=== PATIENT | male | born 1950 | race Caucasian/White ===

== ENCOUNTER 2021-07-22 19:53 | Inpatient (IN) | payer MEDICARE, OTHER ==
[~2021-07-22] VITALS: Ht 177.8 cm; Wt 64.4 kg
--- NOTE | 2021-07-22 21:20 | NUR ---
DR. GUZMAN AT BEDSIDE, MSE IN PROGRESS.
[2021-07-22] MEDS ORDERED: LOSA100T3 PO (21:21)
[2021-07-22] MEDS ORDERED: CALC500T52 PO (21:21)
[2021-07-22] MEDS ORDERED: NIFE90TA2 PO (21:21)
[2021-07-22] MEDS ORDERED: ISOS10TA2 PO (21:21)
[2021-07-22] MEDS ORDERED: HALO2TAB PO (21:21)
[2021-07-22] MEDS ORDERED: BISA10SU61 RC (21:21)
[2021-07-22] MEDS ORDERED: ATOR20TA PO (21:21)
[2021-07-22] MEDS ORDERED: NA P133E RC (21:21)
[2021-07-22] MEDS ORDERED: HYDR-4077 PO (21:21)
[2021-07-22] MEDS ORDERED: MAGN400T26 PO (21:21)
[2021-07-22] MEDS ORDERED: CINA30TA2 PO (21:21)
[2021-07-22] MEDS ORDERED: CLOP75TA15 PO (21:21)
[2021-07-22] MEDS ORDERED: OLAN5TAB6 PO (21:21)
[2021-07-22] MEDS ORDERED: TAMS-3 PO (21:21)
[2021-07-22] MEDS ORDERED: ASPI81TA31 PO (21:21)
[2021-07-22] MEDS ORDERED: BENZ1TAB7 PO (21:21)
[2021-07-22] MEDS ORDERED: LORA10TA7 PO (21:21)
[2021-07-22] MEDS ORDERED: DIVA250T PO (21:21)
[2021-07-22] MEDS ORDERED: HALO5AMP2 IJ (21:21)
[2021-07-22] MEDS ORDERED: MAGN400O6 PO (21:21)
[2021-07-22] MEDS ORDERED: DOCU-141 PO (21:21)
--- NOTE | 2021-07-22 21:37 | NUR ---
LAB AT BEDSIDE.
[2021-07-22 21:57] LABS: CARBON DIOXIDE 28 mmol/L (21-32); CHLORIDE 109 mmol/L (98-107); CREATININE 2.2 mg/dL (0.6-1.3); GLUCOSE 99 mg/dL (74-106); POTASSIUM 5.1 mmol/L (3.5-5.1); UREA NITROGEN, BLOOD 49 mg/dL (7-18)
[2021-07-22 22:03] LABS: ALANINE AMINOTRANSFERASE 15 U/L (16-63); ALKALINE PHOSPHATASE 54 U/L (50-136); ASPARTATE AMINOTRANSFERASE 11 U/L (15-37); BILIRUBIN,DIRECT < 0.1 mg/dL (0.0-0.2); BILIRUBIN,TOTAL 0.2 mg/dL (0.2-1.0); CREATINE KINASE, TOTAL 119 U/L (39-308); TOTAL PROTEIN, SERUM 6.8 g/dL (6.4-8.2)
[2021-07-22 22:05] LABS: ACETAMINOPHEN < 2.0 ug/mL (10-30)
[2021-07-22 22:06] LABS: ETHANOL < 3 MG/DL (0-0)
[2021-07-22 22:11] LABS: THYROID STIMULATING HORMONE 1.276 mIU/mL (0.358-3.740)
[2021-07-22 22:18] LABS: HEMATOCRIT 23.1 % (36.7-47.1); MEAN CORPUSCULAR HEMOGLOBIN 29.4 uug (23.8-33.4); PLATELET COUNT (AUTO) 165 K/uL (152-348)
--- NOTE | 2021-07-22 23:01 | NUR ---
CALLED MARLEN FROM CRISIS TEAM, NO ANSWER LEFT VOICEMAIL.
--- NOTE | 2021-07-22 23:07 | NUR ---
PROVIDED PT WITH MEAL TRAY, WELL TOLERATED.
--- NOTE | 2021-07-22 23:15 | NUR ---
CALLED MARLEN AGAIN, WILL BE ON HER WAY.
--- NOTE | 2021-07-23 | NUR ---
MARLEN AT BEDSIDE TO NUBIA HOANG
--- NOTE | 2021-07-23 00:37 | NUR ---
PT IN BED ASLEEP, BREATHING EVEN AND UNLABORED.
--- NOTE | 2021-07-23 01:30 | NUR ---
GAVE REPORT TO DEISY.
[2021-07-23] MEDS ORDERED: BISACODYL 10 MG SUPP.RECT RC PRN (01:45)
[2021-07-23] MEDS ORDERED: MAGNESIUM HYDROXIDE 30 ML LIQUID UDC PO PRN ×2 (01:45→02:00)
[2021-07-23] MEDS ORDERED: FLEET ENEMA 133 ML BOTTLE RC PRN ×2 (01:45→05:41)
[2021-07-23] MEDS ORDERED: ACETAMINOPHEN 325 MG TABLET PO PRN (02:00)
[2021-07-23] MEDS ORDERED: LORAZEPAM 0.5 MG TABLET PO PRN (02:00)
[2021-07-23] MEDS ORDERED: MAG HYDROX/AL HYDROX/SIMETH 30 ML LIQUID UDC PO PRN (02:00)
--- NOTE | 2021-07-23 02:32 | NUR ---
Pt. admitted to MHU , under care of Dr. AXEL ELLISON DX: [id number], 5150 HOLD DTO, DTS Belongs List completed
[2021-07-23 02:46] VITALS: BP 115/57
--- NOTE | 2021-07-23 03:39 | NUR ---
PATIENT RECEIVED FROM ER VIA [facility] AT 0230. PATIENT WAS UNKEMPT,ALERT/ORIENTED X1, FLAT AFFECT, CONFUSED, GUARDED, ANXIOUS, GARBLED SPEECH, DISORGANIZED, DISORIENTED, AND REQUIRED CONSTANT REDIRECTION. PATIENT STATES SMOKING 12 CIGARETTES A DAY, EDUCATED PATIENT THAT A NICOTINE PATCH WILL BE ORDERED WHILE ADMITTED TO MHU, PATIENT REQUIRED REDIRECTION HE STATED " I WANT TO SMOKE." PATIENT HAS A HISTORY OF DYSPHAGIA AND APHASIA. PATIENT ORIENTED TO UNIT AND ROOM, REQUIRES CONSTANT REDIRECTION AND ORIENTATION. SKIN INTACT, PATIENT CHANGED INTO HOSPITAL GOWN AND HOSPITAL PANTS. PATIENT RECEIVED PATIENT RIGHTS HANDBOOK AND ADVISEMENT AT BEDSIDE. SAFETY MEASURES RENDERED. BED IN LOWEST POSITION, BED LOCKED, AND BED ALARM ON WHILE IN BED. PATIENT DENIES PAIN, NO FACIAL GRIMACING NOTED.
[2021-07-23] MEDS: NICOTINE 14 MG/24HR PATCH TD SCH ×2 (03:55→08:53)
[2021-07-23 08:30] VITALS: BP 141/50
[2021-07-23 08:39] LABS: ALANINE AMINOTRANSFERASE 20 U/L (16-63); ALKALINE PHOSPHATASE 49 U/L (50-136); ASPARTATE AMINOTRANSFERASE 11 U/L (15-37); BILIRUBIN,TOTAL 0.2 mg/dL (0.2-1.0); CARBON DIOXIDE 26 mmol/L (21-32); CHLORIDE 114 mmol/L (98-107); CREATININE 1.9 mg/dL (0.6-1.3); GLUCOSE 77 mg/dL (74-106); TOTAL PROTEIN, SERUM 6.2 g/dL (6.4-8.2); UREA NITROGEN, BLOOD 47 mg/dL (7-18)
[2021-07-23] MEDS: CLOPIDOGREL 75 MG TABLET PO SCH (08:50)
[2021-07-23] MEDS: ASPIRIN 81 MG TAB.CHEW PO SCH (08:50)
[2021-07-23] MEDS: NIFEdipine XL 90 MG TABSR PO SCH (08:50)
[2021-07-23] MEDS: CALCIUM CARBONATE 500 MG TABLET PO SCH ×2 (08:51→16:44)
[2021-07-23] MEDS: MAGNESIUM OXIDE 400 MG TABLET PO SCH ×2 (08:51→16:44)
[2021-07-23] MEDS: LORATADINE 10 MG TABLET PO SCH (08:51)
[2021-07-23] MEDS: CINACALCET HCL 30 MG TABLET PO SCH (08:51)
[2021-07-23] MEDS: ISOSORBIDE DINITRATE 10 MG TABLET PO SCH ×3 (08:51→16:52)
[2021-07-23] MEDS: DOCUSATE SODIUM 100 MG CAPSULE PO SCH ×2 (08:51→16:44)
[2021-07-23] MEDS: LOSARTAN POTASSIUM 50 MG TABLET PO SCH (08:54)
[2021-07-23 09:00] LABS: CHOLESTEROL 142 mg/dL (<200); HDL CHOLESTEROL 36 mg/dL (40-60); TRIGLYCERIDES 61 MG/DL (30-150)
[2021-07-23] MEDS: OLANZAPINE 5 MG TABLET PO SCH ×2 (12:42→20:59)
[2021-07-23] MEDS: DIVALPROEX 250 MG TABLET.DR PO SCH ×2 (12:44→16:51)
--- NOTE | 2021-07-23 15:51 | NUR ---
Received patient AAO x 1 to him self only able to ambulating with unsteady gait, patient able to make needs known with Garble speech .complaint with AM medication ,denies any SI/HI ,shower given with assisted .will continue close monitoring.
[2021-07-23 15:52] VITALS: BP 128/55
[2021-07-23] MEDS ORDERED: DIVA250T PO (16:35)
[2021-07-23 16:53] LABS: IRON, SERUM 25 ug/dL (50-175)
[2021-07-23 19:56] VITALS: BP 136/54
[2021-07-23] MEDS: ATORVASTATIN 20 MG TABLET PO SCH (20:59)
[2021-07-23] MEDS: TAMSULOSIN HCL 0.4 MG CAP.SR.24H PO SCH (20:59)
--- NOTE | 2021-07-24 05:13 | NUR ---
Received patient in his room sleeping, ambulate in the hallways, expressing wanting to go home, patient calm cooperative with care and medication, slept well, cont to monitor.
[2021-07-24 07:30] VITALS: BP 118/53
[2021-07-24 07:55] LABS: CARBON DIOXIDE 25 mmol/L (21-32); CHLORIDE 112 mmol/L (98-107); CREATININE 1.9 mg/dL (0.6-1.3); GLUCOSE 88 mg/dL (74-106); POTASSIUM 5.6 mmol/L (3.5-5.1); UREA NITROGEN, BLOOD 46 mg/dL (7-18)
[2021-07-24] MEDS: CINACALCET HCL 30 MG TABLET PO SCH (09:16)
[2021-07-24] MEDS: DOCUSATE SODIUM 100 MG CAPSULE PO SCH ×2 (09:16→17:36)
[2021-07-24] MEDS: NICOTINE 14 MG/24HR PATCH TD SCH (09:16)
[2021-07-24] MEDS: LOSARTAN POTASSIUM 50 MG TABLET PO SCH (09:17)
[2021-07-24] MEDS: NIFEdipine XL 90 MG TABSR PO SCH (09:18)
[2021-07-24] MEDS: ISOSORBIDE DINITRATE 10 MG TABLET PO SCH ×3 (09:19→17:37)
[2021-07-24] MEDS: MAGNESIUM OXIDE 400 MG TABLET PO SCH ×2 (09:19→17:39)
[2021-07-24] MEDS: OLANZAPINE 5 MG TABLET PO SCH ×2 (09:19→20:44)
[2021-07-24] MEDS: ASPIRIN 81 MG TAB.CHEW PO SCH (09:19)
[2021-07-24] MEDS: CLOPIDOGREL 75 MG TABLET PO SCH (09:20)
[2021-07-24] MEDS: DIVALPROEX 250 MG TABLET.DR PO SCH ×3 (09:20→17:36)
[2021-07-24] MEDS: LORATADINE 10 MG TABLET PO SCH (09:21)
--- NOTE | 2021-07-24 15:00 | NUR ---
A/O X 2 to person, place. Pt. is disorganized, confused, disheveled, compliant with medications. Reality orientation provided. Denies SI/HI AH/VH. Denies pain. Denies SOB. Fall and safety precautions implemented.
[2021-07-24 16:00] VITALS: BP 116/66
[2021-07-24 20:00] VITALS: BP 108/43
[2021-07-24] MEDS: ATORVASTATIN 20 MG TABLET PO SCH (20:44)
[2021-07-24] MEDS: TAMSULOSIN HCL 0.4 MG CAP.SR.24H PO SCH (20:44)
--- NOTE | 2021-07-25 06:14 | NUR ---
Patient slept 8.00 last night. He was up frequently to use the bathroom. 2 times incontinent in addition. Total linen change done. The patient has multiple requests for food, but refuses to take a shower. Gait is unsteady, bed alarm on. Safety Stratiges are in place. Continuing to monitor for behavior escalation. Medication compliant at this time.
[2021-07-25 07:30] VITALS: BP 137/53
[2021-07-25] MEDS: LORATADINE 10 MG TABLET PO SCH (08:54)
[2021-07-25] MEDS: DOCUSATE SODIUM 100 MG CAPSULE PO SCH ×2 (08:54→16:32)
[2021-07-25] MEDS: MAGNESIUM OXIDE 400 MG TABLET PO SCH ×2 (08:55→16:32)
[2021-07-25] MEDS: DIVALPROEX 250 MG TABLET.DR PO SCH ×3 (08:55→16:37)
[2021-07-25] MEDS: ISOSORBIDE DINITRATE 10 MG TABLET PO SCH ×3 (08:55→16:34)
[2021-07-25] MEDS: CINACALCET HCL 30 MG TABLET PO SCH (08:56)
[2021-07-25] MEDS: CLOPIDOGREL 75 MG TABLET PO SCH (08:56)
[2021-07-25] MEDS: NIFEdipine XL 90 MG TABSR PO SCH (08:56)
[2021-07-25] MEDS: OLANZAPINE 5 MG TABLET PO SCH ×2 (08:57→21:10)
[2021-07-25] MEDS: NICOTINE 14 MG/24HR PATCH TD SCH (08:57)
[2021-07-25] MEDS: ASPIRIN 81 MG TAB.CHEW PO SCH (08:58)
[2021-07-25 13:23] LABS: MEAN CORPUSCULAR HEMOGLOBIN 30.5 uug (23.8-33.4); MEAN CORPUSCULAR VOLUME 81.1 fL (73.0-96.2); PLATELET COUNT (AUTO) 172 K/uL (152-348)
[2021-07-25 13:33] LABS: ALANINE AMINOTRANSFERASE 14 U/L (16-63); ALKALINE PHOSPHATASE 61 U/L (50-136); ASPARTATE AMINOTRANSFERASE 8 U/L (15-37); BILIRUBIN,TOTAL 0.3 mg/dL (0.2-1.0); CARBON DIOXIDE 26 mmol/L (21-32); CHLORIDE 108 mmol/L (98-107); CREATINE KINASE, TOTAL 28 U/L (39-308); CREATININE 1.7 mg/dL (0.6-1.3); GLUCOSE 115 mg/dL (74-106); MAGNESIUM 1.9 mg/dL (1.8-2.4); PHOSPHOROUS 2.6 mg/dL (2.5-4.9); POTASSIUM 5.5 mmol/L (3.5-5.1); TOTAL PROTEIN, SERUM 7.4 g/dL (6.4-8.2); UREA NITROGEN, BLOOD 38 mg/dL (7-18)
--- NOTE | 2021-07-25 15:12 | NUR ---
CHERELLE Initial Discharge Note: Pt is a 71 year old male admitted to [facility] on a 5150 hold for a danger to himself and gravely disabled adult. Pt was brought from [facility] ER requesting a psychiatric evaluation. Per pt's sister/DPAna ARREDONDO ([phone]), pt currently resides at [address] [phone] and would like for the pt to return there. Per admissions team at [facility], pt is welcome back upon discharge. CHERELLE will continue to work with pt, family and MD to ensure a safe and proper discharge plan.
--- NOTE | 2021-07-25 15:59 | NUR ---
Collected urine sample as ordered, sent to the lab, awaiting result.
[2021-07-25 16:00] VITALS: BP 101/62
[2021-07-25 16:58] LABS: *BILIRUBIN,URIN NEGATIVE (NEGATIVE); *BLOOD, URINE NEGATIVE (NEGATIVE); *CLARITY,URINE CLEAR (CLEAR); *COLOR,URINE YELLOW (YELLOW); *KETONES,URINE NEGATIVE (NEGATIVE); *UROBILINOGEN,URINE 0.2 E.U./dl (NORMAL); LEUKOCYTE ESTERASE ,URINE NEGATIVE (NEGATIVE); NITRITE, URINE NEGATIVE (NEGATIVE); UGLUCOSE NEGATIVE (NEGATIVE)
[2021-07-25 17:03] LABS: *CREATININE,URINE 102.1 mg/dL (30-125); *URINE TOTAL PROTEIN RANDOM 12.4 mg/dL (<150/24HR)
--- NOTE | 2021-07-25 18:35 | NUR ---
Patient is noted with some confusion, aspiration precaution maintained. Able to verbalized needs but words were unclear. Needs to be redirected. encouraged to verbalized concerns. Contract for safety with the patient. Safety measure maintained. Frequent checks done. Denies SI/HI. will endorse to the next shift for continuity of care.
[2021-07-25 20:00] VITALS: BP 107/41
[2021-07-25] MEDS: TAMSULOSIN HCL 0.4 MG CAP.SR.24H PO SCH (21:09)
[2021-07-25] MEDS: ATORVASTATIN 20 MG TABLET PO SCH (21:10)
[2021-07-26 07:30] VITALS: BP 134/48
[2021-07-26] MEDS: MAGNESIUM OXIDE 400 MG TABLET PO SCH ×2 (07:56→17:07)
[2021-07-26] MEDS: DOCUSATE SODIUM 100 MG CAPSULE PO SCH ×2 (07:56→17:07)
[2021-07-26] MEDS: CLOPIDOGREL 75 MG TABLET PO SCH (07:57)
[2021-07-26] MEDS: LORATADINE 10 MG TABLET PO SCH (07:59)
[2021-07-26] MEDS: DIVALPROEX 250 MG TABLET.DR PO SCH ×3 (07:59→17:07)
[2021-07-26] MEDS: NICOTINE 14 MG/24HR PATCH TD SCH (08:00)
[2021-07-26] MEDS: OLANZAPINE 5 MG TABLET PO SCH ×2 (08:00→20:03)
[2021-07-26] MEDS: ASPIRIN 81 MG TAB.CHEW PO SCH (08:01)
[2021-07-26] MEDS: CINACALCET HCL 30 MG TABLET PO SCH (08:01)
[2021-07-26 08:06] LABS: ALANINE AMINOTRANSFERASE 14 U/L (16-63); ALKALINE PHOSPHATASE 51 U/L (50-136); ASPARTATE AMINOTRANSFERASE 6 U/L (15-37); BILIRUBIN,TOTAL 0.2 mg/dL (0.2-1.0); CARBON DIOXIDE 26 mmol/L (21-32); CHLORIDE 110 mmol/L (98-107); GLUCOSE 101 mg/dL (74-106); MAGNESIUM 1.9 mg/dL (1.8-2.4); PHOSPHOROUS 3.2 mg/dL (2.5-4.9); POTASSIUM 5.6 mmol/L (3.5-5.1); TOTAL PROTEIN, SERUM 6.2 g/dL (6.4-8.2); UREA NITROGEN, BLOOD 54 mg/dL (7-18)
[2021-07-26 08:07] LABS: A/G RATIO 0.9 (0.7-1.7); ALBUMIN 3.3 g/dL (2.9-4.4); ALPHA-1-GLOBULIN 0.2 g/dL (0.0-0.4); ALPHA-2-GLOBULIN 0.8 g/dL (0.4-1.0); BETA GLOBULIN 1.2 g/dL (0.7-1.3); GAMMA GLOBULIN 1.4 g/dL (0.4-1.8); GLOBULIN, TOTAL 3.6 g/dL (2.2-3.9); M-SPIKE Not Observed g/dL (Not Observed)
[2021-07-26 08:37] LABS: HEMATOCRIT 25.1 % (36.7-47.1); MEAN CORPUSCULAR HEMOGLOBIN 25.8 uug (23.8-33.4); MEAN CORPUSCULAR VOLUME 77.8 fL (73.0-96.2); PLATELET COUNT (AUTO) 149 K/uL (152-348)
[2021-07-26] MEDS: NIFEdipine XL 90 MG TABSR PO SCH (09:00)
[2021-07-26] MEDS: ISOSORBIDE DINITRATE 10 MG TABLET PO SCH ×3 (09:50→17:08)
[2021-07-26 13:54] LABS: VALPROIC ACID 23 ug/mL (50-100)
--- NOTE | 2021-07-26 15:48 | NUR ---
Received the patient in the day room last night. Alert and oriented to place. This patient is hungry all the time. During the morning, the patient was assisted to the fariha chair for meals. He is high risk for falls and needs assistance with all ambulation. He is medication compliant and no s/s of aggression noted . Continuing with safety stratiges and monitoring for behavior escalation.
[2021-07-26 17:03] VITALS: BP 158/68
[2021-07-26] MEDS ORDERED: SODIUM POLYSTYRENE SULFONATE 15 G/60 ML LIQUID UDC PO ONE ×2 (17:45→19:30)
[2021-07-26] MEDS: TAMSULOSIN HCL 0.4 MG CAP.SR.24H PO SCH (20:03)
[2021-07-26] MEDS: ATORVASTATIN 20 MG TABLET PO SCH (20:04)
[2021-07-26 20:26] VITALS: BP 125/47
--- NOTE | 2021-07-27 06:09 | NUR ---
No behavioral issues identified during the shift. Patient is compliant with his medications. Safety measures maintained. No acute distress noted. Unaware of safety precaution, uses FWW to the toilet, standby assist rendered. He is high risk for falls. Aspiration precaution maintained. Frequent visual checks done. will endorse to the next shift for continuity of care.
[2021-07-27] MEDS: NICOTINE 14 MG/24HR PATCH TD SCH (09:10)
[2021-07-27] MEDS: NIFEdipine XL 90 MG TABSR PO SCH (09:11)
[2021-07-27] MEDS: DIVALPROEX 250 MG TABLET.DR PO SCH ×3 (09:11→16:31)
[2021-07-27] MEDS: ASPIRIN 81 MG TAB.CHEW PO SCH (09:11)
[2021-07-27] MEDS: CINACALCET HCL 30 MG TABLET PO SCH (09:11)
[2021-07-27] MEDS: MAGNESIUM OXIDE 400 MG TABLET PO SCH ×2 (09:11→16:31)
[2021-07-27] MEDS: ISOSORBIDE DINITRATE 10 MG TABLET PO SCH ×3 (09:11→16:33)
[2021-07-27] MEDS: OLANZAPINE 5 MG TABLET PO SCH ×2 (09:11→21:13)
[2021-07-27] MEDS: CLOPIDOGREL 75 MG TABLET PO SCH (09:11)
[2021-07-27] MEDS: LORATADINE 10 MG TABLET PO SCH (09:12)
[2021-07-27] MEDS: DOCUSATE SODIUM 100 MG CAPSULE PO SCH ×2 (09:12→16:31)
[2021-07-27 09:56] VITALS: BP 130/71
[2021-07-27 10:19] LABS: HEMATOCRIT 24.4 % (36.7-47.1); MEAN CORPUSCULAR HEMOGLOBIN 29.2 uug (23.8-33.4); MEAN CORPUSCULAR VOLUME 79.6 fL (73.0-96.2); PLATELET COUNT (AUTO) 147 K/uL (152-348)
[2021-07-27 10:29] LABS: ALANINE AMINOTRANSFERASE 16 U/L (16-63); ALKALINE PHOSPHATASE 53 U/L (50-136); ASPARTATE AMINOTRANSFERASE 7 U/L (15-37); BILIRUBIN,TOTAL 0.2 mg/dL (0.2-1.0); CARBON DIOXIDE 28 mmol/L (21-32); CHLORIDE 110 mmol/L (98-107); CREATININE 1.7 mg/dL (0.6-1.3); GLUCOSE 82 mg/dL (74-106); MAGNESIUM 1.9 mg/dL (1.8-2.4); PHOSPHOROUS 2.6 mg/dL (2.5-4.9); POTASSIUM 4.9 mmol/L (3.5-5.1); TOTAL PROTEIN, SERUM 6.5 g/dL (6.4-8.2); UREA NITROGEN, BLOOD 38 mg/dL (7-18)
[2021-07-27 16:41] VITALS: BP 110/56
[2021-07-27 20:00] VITALS: BP 121/52
[2021-07-27] MEDS: ATORVASTATIN 20 MG TABLET PO SCH (21:13)
[2021-07-27] MEDS: TAMSULOSIN HCL 0.4 MG CAP.SR.24H PO SCH (21:13)
[2021-07-28 09:15] VITALS: BP 118/61
[2021-07-28] MEDS: NICOTINE 14 MG/24HR PATCH TD SCH (09:23)
[2021-07-28] MEDS: OLANZAPINE 5 MG TABLET PO SCH ×2 (09:24→20:47)
[2021-07-28] MEDS: ASPIRIN 81 MG TAB.CHEW PO SCH (09:24)
[2021-07-28] MEDS: DOCUSATE SODIUM 100 MG CAPSULE PO SCH ×2 (09:24→16:03)
[2021-07-28] MEDS: LORATADINE 10 MG TABLET PO SCH (09:24)
[2021-07-28] MEDS: CINACALCET HCL 30 MG TABLET PO SCH (09:24)
[2021-07-28] MEDS: DIVALPROEX 250 MG TABLET.DR PO SCH ×3 (09:24→16:04)
[2021-07-28] MEDS: CLOPIDOGREL 75 MG TABLET PO SCH (09:24)
[2021-07-28] MEDS: MAGNESIUM OXIDE 400 MG TABLET PO SCH ×2 (09:24→16:05)
[2021-07-28] MEDS: ISOSORBIDE DINITRATE 10 MG TABLET PO SCH ×3 (09:25→16:04)
[2021-07-28] MEDS: NIFEdipine XL 90 MG TABSR PO SCH (09:25)
[2021-07-28 16:26] VITALS: BP 155/52
[2021-07-28 20:38] VITALS: BP 127/57
[2021-07-28] MEDS: ATORVASTATIN 20 MG TABLET PO SCH (20:47)
[2021-07-28] MEDS: TAMSULOSIN HCL 0.4 MG CAP.SR.24H PO SCH (20:47)
[2021-07-29 07:36] LABS: CARBON DIOXIDE 26 mmol/L (21-32); CHLORIDE 109 mmol/L (98-107); CREATININE 1.8 mg/dL (0.6-1.3); GLUCOSE 75 mg/dL (74-106); MAGNESIUM 1.8 mg/dL (1.8-2.4); PHOSPHOROUS 2.4 mg/dL (2.5-4.9); POTASSIUM 4.8 mmol/L (3.5-5.1); UREA NITROGEN, BLOOD 41 mg/dL (7-18)
[2021-07-29 07:44] VITALS: BP 126/52
[2021-07-29 08:16] LABS: HEMATOCRIT 22.2 % (36.7-47.1); MEAN CORPUSCULAR HEMOGLOBIN 34.3 uug (23.8-33.4); MEAN CORPUSCULAR VOLUME 85.1 fL (73.0-96.2); PLATELET COUNT (AUTO) 160 K/uL (152-348)
[2021-07-29] MEDS: NICOTINE 14 MG/24HR PATCH TD SCH (09:00)
[2021-07-29] MEDS: OLANZAPINE 5 MG TABLET PO SCH ×2 (09:26→21:46)
[2021-07-29] MEDS: CINACALCET HCL 30 MG TABLET PO SCH (09:26)
[2021-07-29] MEDS: ASPIRIN 81 MG TAB.CHEW PO SCH (09:27)
[2021-07-29] MEDS: DOCUSATE SODIUM 100 MG CAPSULE PO SCH ×2 (09:27→17:55)
[2021-07-29] MEDS: DIVALPROEX 250 MG TABLET.DR PO SCH ×3 (09:27→17:55)
[2021-07-29] MEDS: LORATADINE 10 MG TABLET PO SCH (09:27)
[2021-07-29] MEDS: CLOPIDOGREL 75 MG TABLET PO SCH (09:27)
[2021-07-29] MEDS: MAGNESIUM OXIDE 400 MG TABLET PO SCH ×2 (09:27→17:55)
[2021-07-29] MEDS: ISOSORBIDE DINITRATE 10 MG TABLET PO SCH ×3 (09:28→17:00)
[2021-07-29] MEDS: NIFEdipine XL 90 MG TABSR PO SCH (09:28)
--- NOTE | 2021-07-29 10:45 | NUR ---
GPS: [facility] HEARING DONE FOR THE 14 DAY HOLD. DECISION IS GRAVE DISABILITY PROBABLE CAUSE. PT REFUSED TO ATTEND THE HEARING.
--- NOTE | 2021-07-29 12:20 | NUR ---
GPS: Nursing Notes: Thought Disorder: Patient is awake and responding to his name, disoriented, poor insight, impaired judgment, needs assistance with ADL's, ambulatory with fww and physical therapist, unsteady and weak gait, unable to formulate a viable plan for self care, resistant with nursing care, gets easily irritable at times when redirected, isolative and withdrawn in his room, needs a lot of prompting to participate in therapeutic groups, continue to monitor for safety, continue with treatment plan.
[2021-07-29 16:06] VITALS: BP 108/47
[2021-07-29] MEDS ORDERED: NEUTRA PHOS PACKET PO ONE (17:00)
[2021-07-29 20:24] VITALS: BP 134/56
[2021-07-29] MEDS: ATORVASTATIN 20 MG TABLET PO SCH (21:47)
[2021-07-29] MEDS: TAMSULOSIN HCL 0.4 MG CAP.SR.24H PO SCH (21:47)
[2021-07-29] MEDS: TEMAZEPAM 7.5 MG CAPSULE PO PRN ×2 (21:58→23:02)
[2021-07-30 08:00] VITALS: BP 125/56
[2021-07-30] MEDS: MAGNESIUM OXIDE 400 MG TABLET PO SCH ×2 (08:50→18:18)
[2021-07-30] MEDS: OLANZAPINE 5 MG TABLET PO SCH ×2 (08:50→20:33)
[2021-07-30] MEDS: CLOPIDOGREL 75 MG TABLET PO SCH (08:51)
[2021-07-30] MEDS: LORATADINE 10 MG TABLET PO SCH (08:51)
[2021-07-30] MEDS: DIVALPROEX 250 MG TABLET.DR PO SCH ×3 (08:51→18:18)
[2021-07-30] MEDS: DOCUSATE SODIUM 100 MG CAPSULE PO SCH ×2 (08:51→18:18)
[2021-07-30] MEDS: ASPIRIN 81 MG TAB.CHEW PO SCH (08:51)
[2021-07-30] MEDS: CINACALCET HCL 30 MG TABLET PO SCH (08:52)
[2021-07-30] MEDS: NIFEdipine XL 90 MG TABSR PO SCH (08:52)
[2021-07-30] MEDS: ISOSORBIDE DINITRATE 10 MG TABLET PO SCH ×3 (08:52→17:00)
[2021-07-30] MEDS: NICOTINE 14 MG/24HR PATCH TD SCH (08:52)
[2021-07-30 19:45] VITALS: BP 106/52
[2021-07-30] MEDS: TAMSULOSIN HCL 0.4 MG CAP.SR.24H PO SCH (20:33)
[2021-07-30] MEDS: TEMAZEPAM 7.5 MG CAPSULE PO PRN (20:33)
[2021-07-30] MEDS: ATORVASTATIN 20 MG TABLET PO SCH (20:34)
[2021-07-31] MEDS: DOCUSATE SODIUM 100 MG CAPSULE PO SCH ×2 (08:55→17:29)
[2021-07-31] MEDS: CLOPIDOGREL 75 MG TABLET PO SCH (08:55)
[2021-07-31] MEDS: DIVALPROEX 250 MG TABLET.DR PO SCH ×3 (08:55→17:28)
[2021-07-31] MEDS: MAGNESIUM OXIDE 400 MG TABLET PO SCH ×2 (08:55→17:29)
[2021-07-31] MEDS: ASPIRIN 81 MG TAB.CHEW PO SCH (08:55)
[2021-07-31] MEDS: OLANZAPINE 5 MG TABLET PO SCH ×2 (08:55→20:32)
[2021-07-31] MEDS: LORATADINE 10 MG TABLET PO SCH (08:55)
[2021-07-31] MEDS: ISOSORBIDE DINITRATE 10 MG TABLET PO SCH ×3 (08:56→17:29)
[2021-07-31] MEDS: CINACALCET HCL 30 MG TABLET PO SCH (08:56)
[2021-07-31] MEDS: NICOTINE 14 MG/24HR PATCH TD SCH (08:56)
[2021-07-31] MEDS: NIFEdipine XL 90 MG TABSR PO SCH (08:57)
--- NOTE | 2021-07-31 10:32 | NUR ---
GPS: PT RECEIVED ON BED. DENIES PAIN OR DISCOMFORT. PT ASSISTED WITH TOILETING AND DRESSING. PT COOPERATIVE WITH CARE AND COMPLIANT WITH MEDS. SEEN AMBULATING WITH WALKER AT [facility]. SEEN BY PHYSICAL THERAPIST AND COMPLIANT WITH IT. PT IS DISORIENTED AND WITH IMPAIRED JUDGEMENT. REQUESTED SNACKS AFTER BREAKFAST. PT STAY IN ACTIVITY ROOM FOR A WHILE. NO AGITATION NOTED. DENIES SI/HI. WILL MONITOR FOR SAFETY.
[2021-07-31 16:00] VITALS: BP 124/57
--- NOTE | 2021-07-31 18:20 | NUR ---
GPS: PT DENIES ANY PAIN OR DISCOMFORT. STAYED AT THE ACTIVITY ROOM ENJOYED EATING SOME SNACKS. NO AGITATION NOTED. PT AMBULATING WITH WALKER, ASSISTED WITH TOILETING, WILL MONITOR FOR SAFETY.
[2021-07-31] MEDS: TAMSULOSIN HCL 0.4 MG CAP.SR.24H PO SCH (20:32)
[2021-07-31] MEDS: TEMAZEPAM 7.5 MG CAPSULE PO PRN (20:32)
[2021-07-31] MEDS: ATORVASTATIN 20 MG TABLET PO SCH (20:33)
[2021-07-31 20:57] VITALS: BP 122/52
[2021-08-01 07:26] LABS: CARBON DIOXIDE 26 mmol/L (21-32); CHLORIDE 109 mmol/L (98-107); CREATININE 1.5 mg/dL (0.6-1.3); GLUCOSE 86 mg/dL (74-106); POTASSIUM 4.6 mmol/L (3.5-5.1); UREA NITROGEN, BLOOD 44 mg/dL (7-18)
[2021-08-01 07:41] VITALS: BP 138/56
[2021-08-01] MEDS: MAGNESIUM OXIDE 400 MG TABLET PO SCH ×2 (08:38→18:04)
[2021-08-01] MEDS: DIVALPROEX 250 MG TABLET.DR PO SCH ×3 (08:38→18:04)
[2021-08-01] MEDS: OLANZAPINE 2.5 MG TABLET PO SCH ×2 (08:38→18:04)
[2021-08-01] MEDS: CLOPIDOGREL 75 MG TABLET PO SCH (08:38)
[2021-08-01] MEDS: DOCUSATE SODIUM 100 MG CAPSULE PO SCH ×2 (08:38→18:04)
[2021-08-01] MEDS: ASPIRIN 81 MG TAB.CHEW PO SCH (08:38)
[2021-08-01] MEDS: LORATADINE 10 MG TABLET PO SCH (08:38)
[2021-08-01] MEDS: NICOTINE 14 MG/24HR PATCH TD SCH ×2 (08:39→09:19)
[2021-08-01] MEDS: ISOSORBIDE DINITRATE 10 MG TABLET PO SCH ×3 (08:39→18:05)
[2021-08-01] MEDS: NIFEdipine XL 90 MG TABSR PO SCH (08:39)
[2021-08-01] MEDS: CINACALCET HCL 30 MG TABLET PO SCH (08:39)
--- NOTE | 2021-08-01 09:29 | NUR ---
RECEIVED PT TODAY. ASSISTED WITH TOILETING. PT ENCOURAGED TO INCREASE FOOD AND FLUID INTAKE UNLESS CONTRAINDICATED. PT ON BED, DEPRESSED, FLAT AFFECT AND WITHDRAWN. NO ANXIETY NOTED AT THIS TIME. Addendum: 08/01/21 at 0932 by RICARDO JOHNSON RN PT REFUSED NICOTINE PATCH
[2021-08-01 19:53] VITALS: BP 121/53
[2021-08-01] MEDS: ATORVASTATIN 20 MG TABLET PO SCH (20:55)
[2021-08-01] MEDS: OLANZAPINE 5 MG TABLET PO SCH (20:55)
[2021-08-01] MEDS: TAMSULOSIN HCL 0.4 MG CAP.SR.24H PO SCH (20:55)
--- NOTE | 2021-08-02 05:30 | NUR ---
patient in his room, A&0x3. Arousable to tactile and verbal stumili. Patient observed to be withdrawn and isolated. Closely monitoring and safety measure kept in place. Remains compliant with medications. Covi swab done w/ negative result. patient to be discharge today
[2021-08-02] MEDS: ASPIRIN 81 MG TAB.CHEW PO SCH (08:15)
[2021-08-02] MEDS: NICOTINE 14 MG/24HR PATCH TD SCH (08:15)
[2021-08-02] MEDS: CINACALCET HCL 30 MG TABLET PO SCH (08:16)
[2021-08-02] MEDS: CLOPIDOGREL 75 MG TABLET PO SCH (08:16)
[2021-08-02] MEDS: ISOSORBIDE DINITRATE 10 MG TABLET PO SCH ×2 (08:16→12:16)
[2021-08-02] MEDS: NIFEdipine XL 90 MG TABSR PO SCH (08:16)
[2021-08-02] MEDS: DOCUSATE SODIUM 100 MG CAPSULE PO SCH (08:16)
[2021-08-02] MEDS: DIVALPROEX 250 MG TABLET.DR PO SCH ×2 (08:16→12:16)
[2021-08-02] MEDS: MAGNESIUM OXIDE 400 MG TABLET PO SCH (08:16)
[2021-08-02] MEDS: OLANZAPINE 2.5 MG TABLET PO SCH (08:20)
[2021-08-02] MEDS: LORATADINE 10 MG TABLET PO SCH (08:21)
[2021-08-02 08:45] VITALS: BP 116/60
--- NOTE | 2021-08-02 09:24 | NUR ---
CHERELLE Discharge Note: Pt will be discharged to [facility] alf [address] [address]) [phone] via FACILITY TRANSPORTATION at 1PM. CHERELLE spoke with admin coordinator, Anu at the facility who states they are ready to accept the patient today. Pt is aware and agreeable with discharge plans. Pts sister, Ana ([phone]) is aware and agreeable with the discharge plans. Pt is alert and oriented x2, is unable to plan for self-care at this time; however, is willing to accept care at SNF. Pt denies any suicidal or homicidal ideation. Pt will follow-up at the facility with Psychiatrist, Dr. Del Rosario and Sharepoint Web Developer, Dr. Toribio. Pt presents with calm mood and congruent affect. PHARMACY: [facility] [address] [facility] .
[2021-08-02 12:16] VITALS: BP 132/72
--- NOTE | 2021-08-02 15:36 | NUR ---
PT LEFT UNIT ON W/C ACCOMPANIED BY INSTRUMENT SPECIALIST SOHA TO PRIVATE VAN. PT IS CALM AND COOPERATIVE. NO AGGRESSIVE OR COMBATIVE BEHAVIOR NOTED. DENIES HI AND SI. LEFT WITH ALL BELONGINGS AND APPROPRIATE PAPERWORK. PT IS AWARE OF DISCHARGE DISPOSITION AND AGREEABLE. IN NO ACUTE DISTRESS.
== END 2021-08-02 15:38 | DRG 885 ==
LOC: ER 19:55 → GPS 07-23 01:47
PROVIDERS: ADMIT Psychiatry & Neurology Psychosomatic Medicine; ATTEND Internal Medicine
DX: F25.9 Schizoaffective disorder, unspecified (principal); F01.50 Vascular dementia, unspecified severity, without behavioral disturbance, psychotic disturbance, mood disturbance, and anxiety; N17.9 Acute kidney failure, unspecified; N18.9 Chronic kidney disease, unspecified; D68.59 Other primary thrombophilia; I69.354 Hemiplegia and hemiparesis following cerebral infarction affecting left non-dominant side; J44.9 Chronic obstructive pulmonary disease, unspecified; D50.9 Iron deficiency anemia, unspecified; D63.8 Anemia in other chronic diseases classified elsewhere; E03.9 Hypothyroidism, unspecified; E87.5 Hyperkalemia; E78.5 Hyperlipidemia, unspecified; E83.52 Hypercalcemia; I12.9 Hypertensive chronic kidney disease with stage 1 through stage 4 chronic kidney disease, or unspecified chronic kidney disease; I25.10 Atherosclerotic heart disease of native coronary artery without angina pectoris; Z20.822 Contact with and (suspected) exposure to COVID-19; I73.9 Peripheral vascular disease, unspecified; N40.0 Benign prostatic hyperplasia without lower urinary tract symptoms; Z79.899 Other long term (current) drug therapy; Z86.19 Personal history of other infectious and parasitic diseases; F39 Unspecified mood [affective] disorder; Z74.09 Other reduced mobility; F31.9 Bipolar disorder, unspecified; D50.0 Iron deficiency anemia secondary to blood loss (chronic)
CPT/HCPCS: 36415; 71045; 80164; 83550; 83735; 83970; 84100; 84155; 84156; 84165; 84300; 84443; 85025; 93005; 93307; 97161; A4663; G0480; J3490